=== PATIENT | male | born 1955 | race Caucasian/White ===

== ENCOUNTER → 2018-04-25 | Outpatient (CLI) | payer BC | END | disposition home or self-care (01) | LOC: CVU 09:32 | PROVIDERS: ATTEND Internal Medicine Cardiovascular Disease | DX: I65.23 Occlusion and stenosis of bilateral carotid arteries (principal); I10 Essential (primary) hypertension; R73.03 Prediabetes | CPT/HCPCS: 0399T; 93306; 93880 ==

== ENCOUNTER 2019-12-04 15:37 | Outpatient (CLI) | payer BC ==
[2019-12-04 16:20] LABS: CREATININE 1.44 mg/dL (0.7-1.3)
[2019-12-04] MEDS ORDERED: OMNIPAQUE 350 MG/ML, 100ML BOTTLE ONE (17:35)
== END 2019-12-04 23:59 | disposition home or self-care (01) ==
LOC: RAD 15:37
PROVIDERS: ATTEND Nurse Practitioner
DX: K76.0 Fatty (change of) liver, not elsewhere classified (principal); K40.20 Bilateral inguinal hernia, without obstruction or gangrene, not specified as recurrent; N40.0 Benign prostatic hyperplasia without lower urinary tract symptoms; N28.1 Cyst of kidney, acquired; N20.0 Calculus of kidney; N13.30 Unspecified hydronephrosis; I70.0 Atherosclerosis of aorta
CPT/HCPCS: 36415; 74177; 82565; Q9967